=== PATIENT | female | born 1945 | race African-American/Black ===

== ENCOUNTER 2019-02-16 20:06 | Emergency (ER) | payer OTHER ==
[~2019-02-16] VITALS: Ht 167.6 cm; Wt 90.7 kg
[~2019-02-16 20:06] MED LIST: ACETAMINOPHEN325 M1 PO; AFLURIA 2045 MCG/0.4; CARVEDILOL12.5 MG PO; CARVEDILOL25 MG PO; CLONIDINE HCL0.2 M2 OR; CLONIDINE HCL0.2 M2 PO; HYDRALAZINE 5050 M1 PO; LISINOPRIL40 MG PO; LOW DOSE ASPIRI81 M1 PO; NORVASC 5 MG TAB5 MG PO; PNEUMOVAX25 MCG/0.5; VITAMIN D31000 UNI2 PO; VITAMIN E400 UNIT PO
[2019-02-16 20:35] VITALS: BP 180/95
[2019-02-16] MEDS ORDERED: ACETAMINOPHEN-1 EAC1 PO (22:20)
== END 2019-02-16 23:16 | disposition home or self-care (01) ==
LOC: ER 20:06
DX: S13.4XXA Sprain of ligaments of cervical spine, initial encounter (principal); S30.1XXA Contusion of abdominal wall, initial encounter; M54.5 Low back pain; I12.9 Hypertensive chronic kidney disease with stage 1 through stage 4 chronic kidney disease, or unspecified chronic kidney disease; N18.4 Chronic kidney disease, stage 4 (severe); M79.7 Fibromyalgia; M19.90 Unspecified osteoarthritis, unspecified site; F41.9 Anxiety disorder, unspecified; Z90.5 Acquired absence of kidney; Z90.710 Acquired absence of both cervix and uterus; Z94.0 Kidney transplant status; Z98.890 Other specified postprocedural states; Z88.6 Allergy status to analgesic agent; Z91.048 Other nonmedicinal substance allergy status; Z88.8 Allergy status to other drugs, medicaments and biological substances; V89.2XXA Person injured in unspecified motor-vehicle accident, traffic, initial encounter; Y93.89 Activity, other specified; Y92.411 Interstate highway as the place of occurrence of the external cause; Y99.8 Other external cause status

== ENCOUNTER 2019-02-27 15:25 | Inpatient (IN) | payer OTHER ==
[~2019-02-27] VITALS: Ht 167.6 cm; Wt 90.7 kg
[~2019-02-27 15:25] MED LIST changes: +ACETAMINOPHEN-1 EAC1 PO
[2019-02-27 15:29] VITALS: BP 184/94
[2019-02-27] MEDS ORDERED: PROGRAF (16:15)
[2019-02-27] MEDS ORDERED: ZOFRAN ODT4 MG PO (17:58)
[2019-02-27] MEDS ORDERED: NORCO 5-325 TA1 EAC1 PO (17:58)
[2019-02-27 18:58] VITALS: BP 170/87
[2019-02-27 21:20] VITALS: BP 170/87
[2019-02-27 21:32] LABS: CALCIUM 9.8 mg/dL (8.5-10.1); CREATININE 2.1 mg/dL (0.6-1.0); POTASSIUM 4.2 mmol/L (3.5-5.1)
[2019-02-27 21:40] LABS: ABSOLUTE NEUTROPHILS 6.1 thou/uL (1.4-8.2); BASOPHILS 1.2 % (0.0-2.0); EOSINOPHILS 0.5 % (0.0-3.0); HEMOGLOBIN 11.1 gm/dL (12.0-15.0); LYMPHOCYTES 8.3 % (24.0-44.0); MCH 25.2 pg (26.0-34.0); MCHC 30.7 g/dL (28.0-37.0); MCV 81.9 fL (80.0-100.0); MONOCYTES 10.9 % (1.0-8.0); PLATELET COUNT 276 thou/uL (150-400); POLYS 79.1 % (36.0-66.0); RBC 4.39 mil/uL (4.20-5.00); RDW 15.3 % (10.5-14.5); WBC 7.7 thou/uL (4.0-11.0)
[2019-02-27 21:56] VITALS: BP 138/83
--- NOTE | 2019-02-28 00:47 | NUR ---
PATIENT CAME FROM THE ED VIA CART AT 2215. ALERT AND ORIENTED X4. RATED PAIN AT A 2 AND DECLINING FROM MEDICATION RECEIVED IN ED. NO WOUNDS. LIMB ALERT TO LEFT ARM DUE TO PREVIOUS GRAFT FOR DIALYSIS. PATIENT HAS NOT HAD DIALYSIS FOR FOUR YEARS. PREVIOUS RIGHT KIDNEY TRANSPLANT IN 2014. ORIENTED TO ROOM AND CALL LIGHT. RESTING QUIETLY. WILL MONITOR.
[2019-02-28] MEDS ORDERED: CELLCEPT 250 M250 MG PO (04:02)
[2019-02-28] MEDS ORDERED: MYCOPHENOLIC A180 MG PO (04:03)
[2019-02-28] MEDS ORDERED: TACROLIMUS0.5 MG PO ×2 (04:04)
[2019-02-28] MEDS ORDERED: PREDNISONE 10 M10 MG PO (04:05)
[2019-02-28 05:48] VITALS: BP 159/95
[2019-02-28 07:50] VITALS: BP 140/85
[2019-02-28 16:21] VITALS: BP 150/77
--- NOTE | 2019-02-28 17:57 | NUR ---
PT A&OX4,IV INTACT IN R WRIST. [place] [facility] IGNACIO IN PLACE. PT HAVING PAIN TO R KNEE AND HIP, TOLERATING PO/IV PAIN MEDS WELL. PT WILL HAVE MRI TOMMORROW. PT CALL APPROP. FOR ASSIST., CALL LIGHT W/I REACH.
[2019-02-28 19:05] VITALS: BP 129/83
--- NOTE | 2019-03-01 03:33 | NUR ---
PATIENT ALERT AND ORIENTED X4. UP WITH ONE TO TWO ASSIST WITH WALKER TO THE BATHROOM FOR A SHOWER TONIGHT. PLEASANT AND COOPERATIVE. MEDICATED FOR PAIN BEFORE SHIFT CHANGE BY AM NURSE AND NO C/O PAIN TO NIGHT NURSE AT TIME OF NOTE. PATIENT WILL HAVE A MRI TODAY ON HER SPINE AND WILL HAVE A NEURO CONSULT WHICH HAS BEEN CALLED. UNABLE TO PUT HER FULL WEIGHT ON THE RIGHT LEG. RESTING QUIETLY AT TIME OF NOTE. WILL MONITOR.
[2019-03-01 03:55] VITALS: BP 106/64
[2019-03-01 09:14] VITALS: BP 123/71
[2019-03-01 10:23] LABS: HEMATOCRIT 36.1 % (37.0-47.0); HEMOGLOBIN 11.3 gm/dL (12.0-15.0); MCH 25.7 pg (26.0-34.0); MCHC 31.2 g/dL (28.0-37.0); MCV 82.4 fL (80.0-100.0); PLATELET COUNT 252 thou/uL (150-400); RBC 4.38 mil/uL (4.20-5.00); RDW 15.9 % (10.5-14.5); WBC 6.4 thou/uL (4.0-11.0)
[2019-03-01 10:42] LABS: ALBUMIN 3.1 g/dL (3.4-5.0); CALCIUM 9.6 mg/dL (8.5-10.1); CREATININE 2.7 mg/dL (0.6-1.0); MAGNESIUM 2.6 mg/dL (1.8-2.4); POTASSIUM 3.7 mmol/L (3.5-5.1); TOTAL BILIRUBIN 0.2 mg/dL (<0.1-1.0)
[2019-03-01 10:49] LABS: ABSOLUTE NEUTROPHILS 4.5 thou/uL (1.4-8.2); PLATELET ESTIMATE NORMAL
[2019-03-01 15:00] VITALS: BP 100/46
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
[2019-03-01 19:57] VITALS: BP 111/63
--- NOTE | 2019-03-02 03:29 | NUR ---
ASSUMED CARE OF PT @ 1900 PT ASSESSED AT START OF SHIFT A&OX4 C/O HAVING CONSTIPATION. EVENING MEDS GIVEN AND SUPPOSITORY GIVEN. IV IN RT HAND AND FLUIDS INFUSING. FALL PREC IN PLACE AND CALL LIGHT WITHIN REACH WILL CONT WITH POC TILL EOS.
[2019-03-02 05:07] VITALS: BP 142/87
[2019-03-02 07:30] VITALS: BP 155/72
[2019-03-02 07:40] VITALS: BP 12/72
--- NOTE | 2019-03-02 10:15 | NUR ---
PT RESTING IN BED GIVEN PRN PAIN MED. TOOK ALL AM MEDS. DR DE LA VEGA HERE TO SEE PATIENT GAVE ORDER TO GO OVER HOME MEDS VS MEDS SHE IS ON AND DC WHAT SHE DOESNT TAKE. DC CLONIDINE AND HYDRALIZINE .
[2019-03-02] MEDS ORDERED: HEPARIN SO5000 UNIT/ SUBQ (10:22)
[2019-03-02] MEDS ORDERED: NEURONTIN 300300 M1 PO (10:23)
[2019-03-02 11:21] LABS: CREATININE 2.6 mg/dL (0.6-1.0); POTASSIUM 3.7 mmol/L (3.5-5.1)
--- NOTE | 2019-03-02 12:07 | NUR ---
THIS MORNING CARE TEAM INDICATED THAT PT WOULD BENEFIT [facility] SHE HASN'T BEEN TAKING HER IMMUNOSUPPRESSIVE MEDS FOR HER KIDNEY TRANSPLANT AND THEY ARE FEARFUL FOR REJECTION. CM SPOKE WITH PT ABOUT THIS AND SHE WAS CONCERNED SHE WANTED DR. LUIS TO DO HER SURGERY. CM CONVEYED THIS TO HOSPITALIST WHO STATED THAT SHE WOULD VISIT WITH PT REGARDING TRANSFER. CM CONTACTED [facility] AND FAXED OVER CLINICAL INFO. CM REQUESTED CHART COPY. CM TO FOLLOW INDICATED WITH DC PLANNING.
--- NOTE | 2019-03-02 15:29 | NUR ---
PT HAD BEEN ACCEPTED FOR ADMISSION TO [facility] TODAY. PT IS TO BE ACCEPTED BY DR. AKIRA ALAMO TO ROOM 5246. REPORT CALLED TO NURSE MOODY AT . CHART COPY ORDERED. [facility] FORM AND TRANSFER FROM ARE WITH THE CHART COPY TO GO WITH PT. PT TO NOTIFY HER FAMILY. NO OTHER CM INTERVENTION INDICATED. CASE CLOSED.
--- NOTE | 2019-03-02 15:53 | NUR ---
CALLED [facility] SPOKE WITH FRANSISCO KEEN AT [facility]. GAVE REPORT. PT IS GOING TO BE ADMITTED BY DR AKIRA ALAMO AND IS TO HAVE KIDNEY BIOPSY.
[2019-03-02 16:02] VITALS: BP 137/55
--- NOTE | 2019-03-02 16:56 | NUR ---
[facility] HERE TO TRANSFER PATIENT TO [facility]. ALL BELONGINGS PACKED AND SENT WITH PATIENT.
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
== END 2019-03-02 17:14 | disposition short-term general hospital (02) | DRG 552 ==
LOC: ER 15:25 → 4E 20:37 → EROBS 20:37 → 4E 21:57
PROVIDERS: Emergency Medicine; Internal Medicine; ADMIT Internal Medicine
DX: M51.16 Intervertebral disc disorders with radiculopathy, lumbar region (principal); N17.9 Acute kidney failure, unspecified; Z94.0 Kidney transplant status; M46.1 Sacroiliitis, not elsewhere classified; I12.9 Hypertensive chronic kidney disease with stage 1 through stage 4 chronic kidney disease, or unspecified chronic kidney disease; E66.9 Obesity, unspecified; M19.90 Unspecified osteoarthritis, unspecified site; F41.9 Anxiety disorder, unspecified; M79.7 Fibromyalgia; I48.0 Paroxysmal atrial fibrillation; E11.22 Type 2 diabetes mellitus with diabetic chronic kidney disease; F80.82 Social pragmatic communication disorder; R33.9 Retention of urine, unspecified; N18.3 Chronic kidney disease, stage 3 (moderate); Z68.32 Body mass index [BMI] 32.0-32.9, adult; Z90.710 Acquired absence of both cervix and uterus; Z90.5 Acquired absence of kidney; Z79.899 Other long term (current) drug therapy; Z79.82 Long term (current) use of aspirin; Z88.8 Allergy status to other drugs, medicaments and biological substances; Z82.49 Family history of ischemic heart disease and other diseases of the circulatory system; Z83.3 Family history of diabetes mellitus
CPT/HCPCS: 10084

== ENCOUNTER 2019-08-09 18:25 | Inpatient (IN) | payer OTHER ==
[~2019-08-09] VITALS: Ht 162.6 cm; Wt 100.7 kg
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
[~2019-08-09 18:25] MED LIST changes: +CELLCEPT 250 M250 MG PO; +HEPARIN SO5000 UNIT/ SUBQ; +MYCOPHENOLIC A180 MG PO; +NEURONTIN 300300 M1 PO; +NORCO 5-325 TA1 EAC1 PO; +PREDNISONE 10 M10 MG PO; +PROGRAF; +TACROLIMUS0.5 MG PO; +ZOFRAN ODT4 MG PO
[2019-08-09 18:26] VITALS: BP 167/100
[2019-08-09] MEDS ORDERED: ELIQUIS5 MG PO (18:47)
[2019-08-09] MEDS ORDERED: LIPITOR 40 MG T40 M1 PO (18:47)
[2019-08-09] MEDS ORDERED: ACYCLOVIR 400400 MG PO (18:48)
[2019-08-09] MEDS ORDERED: TORSEMIDE10 MG PO (18:49)
[2019-08-09] MEDS ORDERED: NORCO 5-325 TA1 EAC1 PO (18:50)
[2019-08-09] MEDS ORDERED: PROTONIX40 M2 PO (18:51)
[2019-08-09 18:57] LABS: HEMATOCRIT 38.6 % (37.0-47.0); HEMOGLOBIN 11.9 gm/dL (12.0-15.0); MCH 26.2 pg (26.0-34.0); MCHC 30.8 g/dL (28.0-37.0); MCV 85.2 fL (80.0-100.0); RBC 4.53 mil/uL (4.20-5.00); RDW 16.4 % (10.5-14.5); WBC 14.4 thou/uL (4.0-11.0)
[2019-08-09 19:05] LABS: CALCIUM 9.2 mg/dL (8.5-10.1); CREATININE 2.6 mg/dL (0.6-1.0); POTASSIUM 4.1 mmol/L (3.5-5.1)
[2019-08-09 19:11] LABS: ALBUMIN 2.5 g/dL (3.4-5.0); DIRECT BILIRUBIN 0.2 mg/dL (<0.1-0.2); TOTAL BILIRUBIN 0.7 mg/dL (<0.1-1.0); TOTAL PROTEIN 5.3 g/dL (6.4-8.2)
[2019-08-09 19:12] LABS: URINE BILIRUBIN NEGATIVE (Negative); URINE BLOOD 3+ (Negative); URINE CLARITY CLEAR; URINE COLOR YELLOW; URINE GLUCOSE-RANDOM* 3+ (Negative); URINE KETONES TRACE (Negative); URINE LEUKOCYTES-REFLEX TRACE (Negative); URINE NITRITE-REFLEX NEGATIVE (Negative); URINE PROTEIN (DIPSTICK) 3+ (Negative); URINE UROBILINOGEN 0.2 E.U./dl (0.2-1.0)
[2019-08-09 19:37] LABS: ABSOLUTE NEUTROPHILS 13.8 thou/uL (1.4-8.2)
[2019-08-09 19:38] LABS: ANISOCYTOSIS 3+; POLYCHROMASIA OCCASIONAL
[2019-08-09 19:41] LABS: CASTS None Seen /LPF (None Seen); CRYSTALS None Seen /LPF (None Seen); SQUAMOUS 0-3 Few /LPF (0-3)
[2019-08-09 19:42] LABS: URINE WBC-REFLEX 0-5 Rare /HPF (0-5)
[2019-08-09 19:43] LABS: PLATELET COUNT 96 thou/uL (150-400)
[2019-08-09 21:44] LABS: APTT 20.8 Seconds (24.5-32.8); PROTIME 10.7 Seconds (9.3-11.4)
[2019-08-09 22:14] VITALS: BP 224/107
[2019-08-09 22:39] VITALS: BP 224/107
[2019-08-10] VITALS (7 sets, daily range): BP systolic 97–184; BP diastolic 56–82
[2019-08-10 00:44] LABS: TSH 1.474 uIU/mL (0.358-3.740)
[2019-08-10 05:26] LABS: ABSOLUTE NEUTROPHILS 10.4 thou/uL (1.4-8.2); BASOPHILS 0.8 % (0.0-2.0); EOSINOPHILS 0.6 % (0.0-3.0); HEMOGLOBIN 11.2 gm/dL (12.0-15.0); LYMPHOCYTES 2.9 % (24.0-44.0); MCH 26.4 pg (26.0-34.0); MCHC 31.1 g/dL (28.0-37.0); MONOCYTES 8.1 % (1.0-8.0); PLATELET COUNT 95 thou/uL (150-400); POLYS 87.6 % (36.0-66.0); RBC 4.24 mil/uL (4.20-5.00); RDW 16.1 % (10.5-14.5); WBC 11.9 thou/uL (4.0-11.0)
[2019-08-10 05:34] LABS: CALCIUM 9.4 mg/dL (8.5-10.1); CREATININE 2.7 mg/dL (0.6-1.0); MAGNESIUM 2.3 mg/dL (1.8-2.4); POTASSIUM 3.5 mmol/L (3.5-5.1)
[2019-08-11 00:10] LABS: GLYCOHEMOGLOBIN (HGB A1C) 14.6 % (4.8-5.6)
[2019-08-11 05:35] LABS: ALBUMIN 2.1 g/dL (3.4-5.0); CALCIUM 8.7 mg/dL (8.5-10.1); PHOSPHORUS 3.3 mg/dL (2.5-4.9); POTASSIUM 3.5 mmol/L (3.5-5.1)
[2019-08-11 05:55] LABS: CREATININE 3.7 mg/dL (0.6-1.0)
--- NOTE | 2019-08-11 08:16 | HC ---
[facility] [place] [address] CONSULTATION Name: NIKITASETH Room #: 405-P [facility] IN M.R.#: [id number] Admission: 08/09/19 Attend Phys: Ajay Champion MD Discharge: Date of : 47 Report #: [id number] THIS REPORT FOR: cc: Dillon Acosta MD, David A. MD Al-Mubaslat, Ahmad MD ~ CC: Dillon Tracey DATE OF SERVICE: 08/10/2019 ENDOCRINE CONSULTATION NOTE CONSULTING PHYSICIAN: Dr. Tracey. PRIMARY CARE PHYSICIAN: Dr. Dillon Acosta. REASON FOR CONSULTATION: Hyperglycemia, type 2 diabetes mellitus. HISTORY OF PRESENT ILLNESS: This is a 74-year-old female patient whose medical background is significant for multiple medical issues including end-stage renal disease, status post kidney transplant, hypertension, osteoarthritis. The patient presented yesterday with a report of altered mental status after having been found by family lying on the floor and confused. When I talked the patient today, she does not have a clear recollection of these events occurred right before presentation, but she repeatedly noted lower extremity swelling, pain and discomfort and attributed some of her symptoms at least a timeline jaam to the time that she received a back injection about 3 weeks ago. Again, I was called to assist with the issue of severe hyperglycemia and when I asked the patient about her background, she denied having ever been diagnosed formally with diabetes mellitus, although she was told at least at some point in time that her blood glucose values were higher than they need to be. She does not believe that she ever was placed on antidiabetic medicines. Naturally, without this formal diagnosis or active therapy, the patient does not monitor her blood glucose values at home. She notes issues with progressive fatigue, tiredness, occasional blurring of vision and thirst over the past several weeks. Her history is significant for end-stage renal disease requiring peritoneal dialysis and culminating in kidney transplant surgery 5 years ago. She attributes the end-stage renal disease at that time to a hereditary kidney disease that she could not elaborate. She is currently on active therapy with prednisone and tacrolimus. REVIEW OF SYSTEMS: CONSTITUTIONAL: Fatigue, tiredness, but no fever or chills or significant body [facility] [address] [place] [address] CONSULTATION Name: SETH SHELTON Av Room #: 405-P [facility] IN ..#: [id number] Admission: 08/09/19 Attend Phys: Ajay Champion MD Discharge: Date of : 46 Report #: [id number] weight changes. HEENT: Negative for sinus pain, ear drainage. PULMONARY: Occasional shortness of breath and cough, but no hemoptysis. CARDIAC: Occasional dizziness, lightheadedness, but no syncope or chest pain. GASTROINTESTINAL: Occasional abdominal distention, nausea, but no vomiting. NEUROLOGY: Confusion, lightheadedness, dizziness, lower extremity pain and numbness, but no seizure activity or severe frequent headaches. MUSCULOSKELETAL: Sporadic but seemingly nonspecific joint and muscle aches. PSYCHIATRIC: Negative for delusions or hallucinations. Otherwise, review of systems is noncontributory other than those mentioned in HPI. PAST MEDICAL HISTORY: 1. End-stage renal disease, status post kidney transplant surgery 5 years ago. 2. Chronic kidney disease, current. 3. Osteoarthritis. 4. Hypertension. 5. Fibromyalgia. 6. Hyperlipidemia. 7. GERD. CURRENT MEDICATIONS: Include gabapentin 300 mg b.i.d., Mycophenolic acid 180 b.i.d., tacrolimus 1 mg daily, prednisone 10 mg daily, Eliquis 5 mg b.i.d., atorvastatin 40 mg daily, acyclovir 400 mg t.i.d., carvedilol 25 mg b.i.d., torsemide 10 mg b.i.d., pantoprazole 40 mg daily. ALLERGIES: CELECOXIB, DUST, GRASS, NAPROSYN, POLLEN, VIOXX and TRAMADOL. FAMILY HISTORY: Noncontributory. SOCIAL HISTORY: The patient denies use of tobacco, alcohol or illicit drugs. PHYSICAL EXAMINATION: GENERAL: Pleasant female patient who is not in apparent pain or distress, but appears lethargic and in and out of sleep. However, she is readily arousable. VITAL SIGNS: Blood pressure 135/80 mmHg, heart rate is 83 beats per minute, respirations 20 per minute, temperature 37.2 degrees Celsius. CONSTITUTIONAL: She is sitting in her chair upright seems fairly comfortable, not in apparent distress. HEENT: Anicteric sclerae. Intact extraocular motions. NECK: Supple, without JVD or lymphadenopathy. No thyromegaly appreciated. CHEST: Noted for moderate air entry bilaterally with scattered rales, rhonchi, but not crackles or wheezes. HEART: Regular rate and rhythm without murmurs or gallops. ABDOMEN: Soft, lax. No guarding, no tenderness. Active bowel sounds. [facility] [address] [place] [address] CONSULTATION Name: SETH SHELTON #: 405-P [facility] IN M.R.#: [id number] Admission: 08/09/19 Attend Phys: Ajay Champion MD Discharge: Date of : 46 Report #: [id number] EXTREMITIES: Lower extremity exam is noted for ankle edema. Stasis dermatitis, but no skin breaks or ulcerations. Pedal pulses are faint. NEUROLOGIC: Somnolent, but arousable, seems a bit confused, but able to eventually answer most of my questions. Grossly nonfocal exam. PSYCHIATRIC: Pleasant, normal mood and affect. My ability to evaluate her is impacted by her overall somnolence and lethargy. LABORATORY DATA: On arrival, her blood glucose was 491, fell down to 466 and 304 and then 341 mg/dL. Sodium 142, potassium 3.5, chloride 106, CO2 of 26, anion gap 10, BUN 41, creatinine is 2.7 this was at 2.1 in February 2019, AST 11, total bilirubin 0.7, direct bilirubin 0.2, calcium 9.4, phosphorus 4.8, magnesium 2.3, alkaline phosphatase 84, ALT 19, total protein 5.3, albumin 2.5, EGFR 21. Troponin is negative. BNP 1938. CRP 21.5 in February 2019. INR is 1.0. White blood count 11.9, hemoglobin 11.2, hematocrit 36, platelets 95. TSH 1.474. Hemoglobin A1c is pending. A CT scan of the head without contrast was done on presentation and did not reveal acute intracranial hemorrhage or large vessel infarction; however, it showed extensive confluent nonspecific periventricular and subcortical white matter hypodensities compatible with small vessel ischemic changes with recommendation to consider an MRI for further evaluation if needed. ASSESSMENT AND PLAN: 1. Type 2 diabetes mellitus. While the patient does not have a formal diagnosis of type 2 diabetes mellitus, her recorded blood glucose values certainly fall well within a diabetic range. Whether or not this has been exacerbated beyond her usual baseline due to recent events is hard to discern. However, the patient undoubtedly falls in diabetic range. In order to gain further insight into the degree of hyperglycemia over the past few months, hemoglobin A1c level would be helpful and one is being processed right now. In the immediate setting and in view of the limitation of her chronic kidney disease, I believe that insulin therapy would be the safest and yet most effective method to addressing her therapeutic needs. The patient has been placed on a Humalog supplemental scale low intensity, which I will advance further to moderate intensity as well as at a single dose of Lantus at 14 units daily along with linagliptin 5 mg daily. Blood glucose monitoring will commence a.c. and at bedtime, so as to further adjust her regimen as needed. 2. Hyperlipidemia. The patient is currently on atorvastatin therapy and tolerates it well, she is to continue with the same. 3. Chronic kidney disease. The patient's kidney function studies are compatible with stage 4 chronic kidney disease. She is status post kidney transplant. She is currently maintained on her usual immunosuppressive therapy including Myfortic, prednisone and Prograf, these are to continue. 5. Hypertension. The patient is currently on a combination of carvedilol and hydralazine with adequate blood pressure control, she is to continue the same. I have reviewed the patient's clinical care notes, laboratory studies, [address] [place] [address] CONSULTATION Name: SHELTONSETH Room #: 405-P [facility] IN M.R.#: [id number] Admission: 08/09/19 Attend Phys: Ajay Champion MD Discharge: Date of : 46 Report #: [id number] radiologic studies, and other pertinent information for more than 35 minutes. I certainly appreciate this consultation by Dr. Tracey. <ELECTRONICALLY SIGNED> By: Rasheeda Menon MD 08/11/19 0816 1151 09 Rasheeda Menon MD /nt
[2019-08-11 09:58] VITALS: BP 138/75
[2019-08-11 10:01] VITALS: BP 138/75
[2019-08-11 15:05] VITALS: BP 138/75
== END 2019-08-11 16:14 | disposition short-term general hospital (02) | DRG 698 ==
LOC: ER 18:25 → EROBS 21:32 → 4N 21:32 → 2N 21:32 → ENTRNSPT 08-10 16:44 → 4N 08-10 17:42
PROVIDERS: Emergency Medicine; Hospitalist; Nurse Practitioner; ADMIT Hospitalist
DX: T86.11 Kidney transplant rejection (principal); G93.41 Metabolic encephalopathy; N17.9 Acute kidney failure, unspecified; I12.0 Hypertensive chronic kidney disease with stage 5 chronic kidney disease or end stage renal disease; I16.0 Hypertensive urgency; Y83.8 Other surgical procedures as the cause of abnormal reaction of the patient, or of later complication, without mention of misadventure at the time of the procedure; D72.829 Elevated white blood cell count, unspecified; M19.90 Unspecified osteoarthritis, unspecified site; F41.9 Anxiety disorder, unspecified; M79.7 Fibromyalgia; I48.0 Paroxysmal atrial fibrillation; E86.0 Dehydration; E11.65 Type 2 diabetes mellitus with hyperglycemia; E11.22 Type 2 diabetes mellitus with diabetic chronic kidney disease; G47.00 Insomnia, unspecified; E78.5 Hyperlipidemia, unspecified; K21.9 Gastro-esophageal reflux disease without esophagitis; Z66 Do not resuscitate; D69.6 Thrombocytopenia, unspecified; E66.9 Obesity, unspecified; Z86.718 Personal history of other venous thrombosis and embolism; Z68.38 Body mass index [BMI] 38.0-38.9, adult; Z79.01 Long term (current) use of anticoagulants; Z90.710 Acquired absence of both cervix and uterus; Z90.5 Acquired absence of kidney; Z79.899 Other long term (current) drug therapy; Z79.891 Long term (current) use of opiate analgesic; Z88.1 Allergy status to other antibiotic agents; Z88.8 Allergy status to other drugs, medicaments and biological substances; Z91.14 Patient's other noncompliance with medication regimen
CPT/HCPCS: 10081; 10790